=== PATIENT | female | born 1975 | race Caucasian/White ===

== ENCOUNTER 2017-01-14 20:04 | Emergency (ER) | payer OTHER ==
[~2017-01-14] VITALS: Ht 162.6 cm; Wt 122.8 kg
[2017-01-14] MEDS ORDERED: LIDOCAINE 1%, 20ML ONE (20:30)
[2017-01-14] MEDS ORDERED: LIDOCAINE 1%, 20ML INFIL ONE (20:30)
[2017-01-14 23:06] VITALS: BP 136/84
== END 2017-01-14 23:08 | disposition home or self-care (01) ==
LOC: ED 23:06
DX: L73.2 Hidradenitis suppurativa (principal); I10 Essential (primary) hypertension; M19.90 Unspecified osteoarthritis, unspecified site; Z88.0 Allergy status to penicillin; Z88.6 Allergy status to analgesic agent
CPT/HCPCS: 10060; 76642; 99284; J3490